=== PATIENT | male | born 1995 | race Caucasian/White ===

== ENCOUNTER 2020-10-17 21:47 | Emergency (ER) | payer OTHER ==
[~2020-10-17] VITALS: Ht 185.4 cm; Wt 86.2 kg
[2020-10-17] MEDS ORDERED: CEPH500 PO (22:21)
== END 2020-10-17 22:54 | disposition home or self-care (01) ==
LOC: ER 21:47
DX: L02.415 Cutaneous abscess of right lower limb (principal)
CPT/HCPCS: A9270